=== PATIENT | female | born 1965 | race African-American/Black ===

== ENCOUNTER 2018-06-25 02:14 | Emergency (ER) | payer BC | END 2018-06-25 03:15 | disposition home or self-care (01) | LOC: SCSER 02:14 | DX: K08.89 Other specified disorders of teeth and supporting structures (principal); E03.9 Hypothyroidism, unspecified; I10 Essential (primary) hypertension; Z79.899 Other long term (current) drug therapy | CPT/HCPCS: 99282 ==